=== PATIENT | female | born 2005 | race Caucasian/White ===

== ENCOUNTER 2024-02-11 17:35 | Emergency (ER) | payer BC, SELFPAY ==
[2024-02-11 17:38] VITALS: BP 119/79; PULSE 76; TEMP 37.1; O2SAT 98; BMI 19.7
[2024-02-11 17:59] LABS: Bilirubin Urine NEGATIVE (NEGATIVE); Blood Urine NEGATIVE (NEGATIVE); Clarity Urine CLEAR (CLEAR); Color Urine DK. YELLOW (YELLOW); Glucose Urine UA NEGATIVE (NEGATIVE); Ketones Urine NEGATIVE (NEGATIVE); Leukocyte Esterase Urine NEGATIVE (NEGATIVE); Nitrite Urine POSITIVE (NEGATIVE); Protein Urine NEGATIVE (NEG/TRACE); Specific Gravity Urine <=1.005 (1.005-1.025); Urobilinogen Urine 0.2 EU/dL (0.2-1.0); pH Urine 6.5 (5.0-9.0)
[2024-02-11 18:01] LABS: HCG Qualitative Urine* NEGATIVE (NEGATIVE); Internal Control Within Normal Limits
[2024-02-11 18:07] LABS: RBC Urine 0-2 #/HPF (0-2); Urine Microscopic Indicated YES; WBC Urine NONE SEEN #/HPF (NONE SEEN)
[2024-02-11] MEDS: KETOROLAC TROMETHAMINE 30 MG/ML VIAL 15 MG IVP (18:07)
[2024-02-11 18:08] LABS: Bacteria Urine TRACE #/HPF (NONE SEEN); Cast Seen? NONE SEEN #/LPF (NONE SEEN); Crystals Seen? None Seen #/HPF (None Seen); Mucus Urine NONE SEEN (NONE SEEN); Squamous Epithelial Cell Urine FEW #/LPF (NONE/RARE); Urine Culture Indicated YES
[2024-02-11] MEDS: 0.9 % SODIUM CHLORIDE 1,000 ML 999 ML IV (18:08)
[2024-02-11 18:11] LABS: Basophils Absolute Auto 0.1 10^3/uL (0.0-0.1); Eosinophils Absolute Auto 0.2 10^3/uL (0.0-0.7); Hematocrit 39.1 % (36.0-48.0); Hemoglobin 13.9 g/dL (12.0-16.0); Immature Granulocytes Abs Auto 0.01 10^3/uL (0.00-0.03); Immature Granulocytes Pct Auto 0.2 % (0.0-0.5); Lymphocytes Absolute Auto 2.6 10^3/uL (1.2-3.8); Lymphocytes Percent Auto 43.1 % (20.5-60.0); Mean Corpuscular HGB Conc 35.5 g/dL (29.9-35.2); Mean Corpuscular Hemoglobin 31.9 pg (26.7-34.0); Mean Corpuscular Volume 89.7 fL (81.0-99.0); Mean Platelet Volume 11.2 fL (9.5-13.5); Monocytes Absolute Auto 0.5 10^3/uL (0.3-0.8); Monocytes Percent Auto 8.6 % (1.7-12.0); Neutrophils Absolute Auto 2.6 10^3/uL (1.4-6.5); Neutrophils Percent Auto 44.1 % (43.0-75.0); Platelet Count 241 10^3/uL (150-450); Red Blood Count 4.36 10^6/uL (4.20-5.40); White Blood Count 5.9 10^3/uL (4.0-11.0)
[2024-02-11 18:23] LABS: Alanine Aminotransferase 16 U/L (14-59); Albumin Globulin Ratio 1.2; Albumin Level 4.5 g/dL (3.4-5.0); Alkaline Phosphatase 53 U/L (46-116); Anion Gap 14.4; Aspartate Amino Transferase 14 U/L (15-37); BUN Creatinine Ratio 11.5; Bilirubin Total 0.6 mg/dL (0.2-1.0); Calcium 9.7 mg/dL (8.5-10.1); Carbon Dioxide 26.9 mmol/L (21.0-32.0); Chloride 100 mmol/L (98-107); Estimated GFR (African America >60 (>=60 mL/min/1.73m^2); Estimated GFR (Non-African Ame >60 (>=60 mL/min/1.73m^2); Globulin 3.6 g/dL; Glucose 108 mg/dL (74-106); Potassium 3.3 mmol/L (3.5-5.1); Sodium 138 mmol/L (136-145); Total Protein 8.1 g/dL (6.4-8.2)
--- NOTE | 2024-02-11 18:42 | CT_ITS ---
[address] [address] Patient Name: PRADEEP MACIEL MRN: [id number] date: 2005 Sex: F Assigned Patient Location: ER Current Patient Location: .MAIN Accession/Order Number: [id number] Exam Date: 02/11/2024 19:16 Report Date: 02/11/2024 20:22 At the request of: GAYLE SIMMS Procedure: CT abdomen pelvis wo con EXAM: CT abdomen pelvis wo con HISTORY: flank pain COMPARISON: None. TECHNIQUE: Axial CT imaging was performed through the abdomen and pelvis without intravenous contrast. Multiplanar reformats were performed. Dose reduction techniques were achieved by using automated exposure control and/or adjustment of mA and/or kV according to patient size and/or use of iterative reconstruction technique. FINDINGS: Lung bases: Lung bases are clear. No pleural effusion. GI upper: Unremarkable. Liver: Normal size and contour. Gallbladder: No significant abnormality. No cholelithiasis. Biliary system: No intra or extrahepatic biliary ductal dilatation. Spleen: Normal size. Pancreas: Unremarkable. Adrenal glands: Normal adrenal glands. Kidneys/ureters: Normal contours. No hydronephrosis. No nephrolithiasis or ureterolithiasis. Vessels: No aneurysm. Lymph Nodes: No lymphadenopathy. Small bowel: No wall thickening or dilatation. Colon: No wall thickening or dilatation. Appendix: Appendix is identified with normal appearance. Peritoneal cavity: No free fluid or pneumoperitoneum. Lower : Unremarkable. Bones: No acute bony abnormality. Soft tissues: No acute finding. Additional findings: None. CT/CT abdomen pelvis wo con IMPRESSION: Unremarkable noncontrast CT of the abdomen and pelvis. No acute abnormality. Electronically authenticated by: RADHA NEWMAN Date: 02/11/2024 20:22
[2024-02-11] MEDS: CEFTRIAXONE 1,000 MG in 0.9 % SODIUM CHLORIDE 50 ML 100 MG IV (19:02)
[2024-02-11 19:09] VITALS: BP 106/65; PULSE 82; TEMP 37.2; O2SAT 99
--- NOTE | 2024-02-11 20:52 | ED_ITS ---
HPI HPI - General Adult General Chief complaint: Urogenital-Female Stated complaint: UTI Time Seen by Provider: 02/11/24 17:43 Source: patient Mode of arrival: walk-in Limitations: no limitations History of Present Illness HPI narrative: 18-year-old female presents with boyfriend with complaint of left flank pain, dysuria, frequency. Onset over the past couple days. Was evaluated by her provider and started on Cipro. She has only had 1 dose of Cipro. With the onset of flank pain today, came in due to concerns about kidney infection, kidney stone. Denies any fever, chills. Quality:?Sharp Severity:?Moderate Timing:?As above, constant Context: Normal setting and activity? Modifying factors:?None Associated symptoms: as above Related Data Home Medications ?Medication ?Instructions ?Recorded ?Confirmed ciprofloxacin HCl 500 mg tablet 500 mg PO Q12H 02/11/24 02/11/24 fluconazole 150 mg tablet 150 mg PO Q12H 02/11/24 02/11/24 Allergies Allergy/AdvReac Type Severity Reaction Status Date / Time No Known Drug Allergies Allergy Verified 02/11/24 17:49 Opioid HPI Opioid Management Most Recent Opioid Data: Last Pain Scale 6 02/11/24 18:07 Last MAR Pain Assessment 02/11/24 18:07 Review of Systems ROS Narrative CONST: Denies any fever, chills RESP: Denies any cough, shortness of breath CV: Denies any chest pain, peripheral edema GI: + nausea, vomiting. Denies any diarrhea, abd pain : + flank pain, dysuria MS: + back pain Denies any myalgias SKIN: Denies any color change, rash NEURO: Denies numbness, weakness PSYCHIATRIC: Denies confusion, agitation PFSH PFSH Social History Little interest or pleasure in doing things: not at all Feeling down, depressed, or hopeless: not at all Exam Narrative Exam Narrative: Vital signs reviewed Nurses notes noted CONST: Nontoxic, well appearing, well nourished, in no distress.? No diaphoresis.?? HENT: normocephalic, atraumatic, moist mucous membrane, no abnormalities of the nose noted, hearing normal EYES: normal appearing conjunctiva, no apparent discharge bilat NECK: normal appearance CV: normal rate, regular rhythm, no murmur RESP: normal effort, speaking in complete sentences. Lung sounds clear and equal bilat.? No wheezes, rales, rhonchi GI: normal bowel sounds, soft, no distension, nontender : + left CVA tenderness MS: no edema, tenderness SKIN: no pallor NEURO: A&Ox 3, no focal findings PSYCH: normal mood, affect Constitutional Vital Signs, click to edit/add: Last Vital Signs Temp 98.9 F 02/11/24 19:09 Pulse 82 02/11/24 19:09 Resp 18 02/11/24 19:09 BP 106/65 02/11/24 19:09 Pulse Ox 99 02/11/24 19:09 Course Vital Signs Vital signs: Vital Signs Temperature 98.7 F 02/11/24 17:38 Pulse Rate 76 02/11/24 17:38 Respiratory Rate 20 02/11/24 17:38 Blood Pressure 119/79 02/11/24 17:38 Pulse Oximetry 98 02/11/24 17:38 Temperature 98.9 F 02/11/24 19:09 Pulse Rate 82 02/11/24 19:09 Respiratory Rate 18 02/11/24 19:09 Blood Pressure 106/65 02/11/24 19:09 Pulse Oximetry 99 02/11/24 19:09 Medical Decision Making MDM Narrative Medical decision making narrative: This is a pleasant 18-year-old female presents to the emergency department with complaint left flank pain, dysuria. She was started on Cipro, has only had 1 dose. Worried about kidney infection, kidney stone. On arrival, afebrile, vital signs are stable. On exam, nontoxic, well-appearing patient in no distress. Heart regular rate and rhythm. Lung sounds clear and equal bilaterally. Abdomen soft, nontender. She displays left CVA tenderness Labs reveal no leukocytosis, anemia, electrolyte imbalance, renal impairment. LFTs unremarkable lipase was 28 Urinalysis shows evidence of infection with nitrites. Urine culture ordered CT abd pelvis imaging, per radiologist reveals no acute findings Patient given dose of Rocephin, IV fluids, Toradol during ED course History and record review Discussion with independent historian: Significant other Additional records reviewed: No prior records Favor left flank pain, UTI Ureterolithiasis, diverticulitis less likely based on imaging Management Additional testing interventions: IV fluids, hydration Reevaluation: Clinically improved Disposition ? The patient was discharged. Plan: Patient will be discharged to home. Condition at time of disposition: stable Advised to continue taking her antibiotics as previously prescribed. Motrin as needed for pain Advised to follow up with primary provider. Advised to return for any worsening and/or development of new, concerning signs or symptoms PLEASE NOTE: Portions of the medical record may have been produced using electronic mobile device developer and may contain errors with respect to translation of words which may not have been identified prior to finalization of the chart. Medical Records Medical records reviewed: Yes I reviewed the patient's medical records Lab Data Lab results reviewed: Yes I reviewed the patient's lab results Labs: Lab Results 02/11/24 02/11/24 Range/Units 17:45 18:01 WBC 5.9 (4.0-11.0) 10^3/uL RBC 4.36 (4.20-5.40) 10^6/uL Hgb 13.9 (12.0-16.0) g/dL Hct 39.1 (36.0-48.0) % MCV 89.7 (81.0-99.0) fL MCH 31.9 (26.7-34.0) pg MCHC 35.5 H (29.9-35.2) g/dL RDW 11.0 (11.0-15.0) % Plt Count 241 (150-450) 10^3/uL MPV 11.2 (9.5-13.5) fL Neut % (Auto) 44.1 (43.0-75.0) % Lymph % (Auto) 43.1 (20.5-60.0) % [place] % (Auto) 8.6 (1.7-12.0) % Eos % (Auto) 3.0 (0.9-7.0) % Baso % (Auto) 1.0 (0.2-2.0) % Neut # (Auto) 2.6 (1.4-6.5) 10^3/uL Lymph # (Auto) 2.6 (1.2-3.8) 10^3/uL [place] # (Auto) 0.5 (0.3-0.8) 10^3/uL Eos # (Auto) 0.2 (0.0-0.7) 10^3/uL Baso # (Auto) 0.1 (0.0-0.1) 10^3/uL Abs Immat Gran (auto) 0.01 (0.00-0.03) 10^3/uL Imm/Tot Granulo (auto) 0.2 (0.0-0.5) % Sodium 138 (136-145) mmol/L Potassium 3.3 L (3.5-5.1) mmol/L Chloride 100 (98-107) mmol/L Carbon Dioxide 26.9 (21.0-32.0) mmol/L Anion Gap 14.4 BUN 9.0 (7.0-18.0) mg/dL Creatinine 0.78 (0.55-1.02) mg/dL Est GFR ( Amer) >60 (>=60 mL/min/1.73m^2) Est GFR (Non-Af Amer) >60 (>=60 mL/min/1.73m^2) BUN/Creatinine Ratio 11.5 Glucose 108 H (74-106) mg/dL Calcium 9.7 (8.5-10.1) mg/dL Total Bilirubin 0.6 (0.2-1.0) mg/dL AST 14 L (15-37) U/L ALT 16 (14-59) U/L Alkaline Phosphatase 53 (46-116) U/L Total Protein 8.1 (6.4-8.2) g/dL Albumin 4.5 (3.4-5.0) g/dL Globulin 3.6 g/dL Albumin/Globulin Ratio 1.2 Lipase 28.0 (16.0-77.0) U/L Urine Color Dk. yellow (YELLOW) Urine Clarity Clear (CLEAR) Urine pH 6.5 (5.0-9.0) Ur Specific [place] <=1.005 A (1.005-1.025) Urine Protein Negative (NEG/TRACE) mg/dL Urine Glucose (UA) Negative (NEGATIVE) mg/dL Urine Ketones Negative (NEGATIVE) mg/dL Urine Occult Blood Negative (NEGATIVE) Urine Nitrite Positive A (NEGATIVE) Urine Bilirubin Negative (NEGATIVE) Urine Urobilinogen 0.2 (0.2-1.0) EU/dL Ur Leukocyte Esterase Negative (NEGATIVE) Urine RBC 0-2 (0-2) #/HPF Urine WBC None seen (NONE SEEN) #/HPF Ur Squamous Epith Cells Few A (NONE/RARE) #/LPF Urine Crystals None seen (None Seen) #/HPF Urine Bacteria Trace A (NONE SEEN) #/HPF Urine Casts None seen (NONE SEEN) #/LPF Urine Mucus None seen (NONE SEEN) Ur Culture Indicated? Yes Urine HCG, Qual Negative (NEGATIVE) Imaging Data CT scan - abdomen: Attestation: I have reviewed the pertinent imaging results. Radiologist's impression: ITS Impressions Abdomen/Pelvis CT 02/11/24 18:42 IMPRESSION: Unremarkable noncontrast CT of the abdomen and pelvis. No acute abnormality. Electronically authenticated by: RADHA NEWMAN Date: 02/11/2024 20:22 Discharge Plan Discharge Chief Complaint: Urogenital-Female Clinical Impression: Acute left flank pain Urinary tract infection Qualifiers: Urinary tract infection type: site unspecified Patient Disposition: Home, Self-Care Time of Disposition Decision: 20:50 Mode of Transportation: Private Vehicle Prescriptions / Home Meds: No Action fluconazole 150 mg tablet 150 mg PO Q12H ciprofloxacin HCl 500 mg tablet 500 mg PO Q12H Print Language: [place] Instructions: Urinary Tract Infection in Women (ED), Flank Pain (ED) Additional Instructions: Continue Cipro as previously prescribed Take Motrin, 400 mg, 2 [id number] tablets every 6-8 hours for pain Referrals: Ed Godfrey MD [Physician] - 1 week PhysicianNon-StaffMD [Primary Care Provider] - 1 week
[2024-02-11 21:17] VITALS: BP 102/75; PULSE 71; TEMP 36.9; O2SAT 99
== END 2024-02-11 21:19 | disposition home or self-care (01) ==
PROVIDERS: Physician Assistant; Emergency Provider Student in an Organized Health Care Education/Training Program
DX: N39.0 Urinary tract infection, site not specified (principal); R10.9 Unspecified abdominal pain
CPT/HCPCS: 36415; 74176; 80053; 81001; 83690; 84703; 85025; 87086; 96365; 96375; 99285; J0696; J1885